=== PATIENT | female | born 1995 | race Caucasian/White ===

== ENCOUNTER 2018-07-18 11:31 | Emergency (ER) | payer OTHER, SELFPAY ==
[2018-07-18 12:51] VITALS: BP 144/90; PULSE 84; RESP 13; TEMP 37.3; O2SAT 100
--- NOTE | 2018-07-18 14:47 | ED.BACK ---
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 He has chronic ongoing back pain and has for awhile. She has done physical therapy acupuncture. She was told she has bulging discs. Today she presents with both abdominal and back pain but back pain seems to be the bigger problem. She did have some sciatic pain and discomfort down her right leg earlier this morning. It is slightly better. She has been on naproxen, ketorolac and methocarbamol she says nothing is helping. This morning she also is having some bad abdominal cramping she started her menses. Today she does have an IUD. His abdominal pain is better today now, now complaining more of back pain. She denies any injury. MD Complaint: back pain Onset (ago): month(s) Related Data Previous Rx's Medication Instructions Recorded diazepam [Valium] 5 mg PO BID PRN #10 tab 07/18/18 meloxicam 15 mg PO DAILY PRN #30 tab 07/18/18 Allergies Allergy/AdvReac Type Severity Reaction Status Date / Time No Known Drug Allergies Allergy Verified 07/18/18 15:06 Review of Systems Review of Systems GENERAL: Denies chills, fatigue, malaise, fever, sweats, travel HEENT: Denies sinus pain, ear pain, sore throat, difficulty swallowing, neck pain RESPIRATORY: Denies dyspnea, cough, wheezing, hemoptysis, sputum. CARDIOVASCULAR: Denies chest pain, palpitations, orthopnea, edema GASTROINTESTINAL: Denies nausea, vomiting, abdominal pain, diarrhea, constipation, melena. : Denies dysuria, frequency, incontinence, hematuria, urinary retention, flank pain. MUSCULOSKELETAL: See HPI SKIN: No rash, no erythema, no pruritus NEUROLOGIC: Denies weakness, dizziness, headache, numbness, change in speech, confusion PSYCHIATRIC: No concerning psychosocial issues. 12 point review of systems is negative except for those stated above and HPI PFSH Medical History Chronic back pain (Acute) Social History alcohol intake: never substance use type: does not use Social History alcohol intake: never substance use type: does not use Exam Initial Vital Signs Initial Vital Signs: Vital Signs Temperature 99.1 F 07/18/18 12:51 Pulse Rate 84 07/18/18 12:51 Respiratory Rate 13 07/18/18 12:51 Blood Pressure 144/90 H 07/18/18 12:51 Pulse Oximetry 100 07/18/18 12:51 GENERAL: Tearful in position on left side holding right flank. HEENT: Head atraumatic,EOMI, pupils reactive, CARDIOVASCULAR: Regular rate and rhythm without murmurs, rubs or gallops. RESPIRATORY: Breath sounds equal bilaterally, no wheezes rales or rhonchi. ABDOMEN: Soft, nontender. Normoactive bowel sounds all 4 quadrants. No guarding or rebound. BACK: No vertebral tenderness no step-offs, tender right peer form it is area : No CVA tenderness EXTREMITIES: Normal range of motion, no clubbing or edema. Neurovascularly intact NEUROLOGICAL: Alert and oriented x4.Normal gait and speech. SKIN: Warm, dry, no laceration, no petechiae, no rashes or lesions. Course Orders Ordered: Discontinued Medications Ketorolac Tromethamine (Toradol) 60 mg IM NOW ONE Stop: 07/18/18 14:47 Last Admin: 07/18/18 15:07 Dose: 60 mg Vital Signs - 8 hr 07/18/18 12:51 07/18/18 15:28 Temperature 99.1 F Pulse Rate 84 77 Respiratory Rate 13 14 Blood Pressure 144/90 H Blood Pressure [Left Arm] 104/62 Pulse Oximetry 100 99 MDM - Back Pain/Injury Lab Data Point of Care Testing Test Results Negative Urine Dip Bedside Urine Glucose Negative Bedside Urine Bilirubin - Negative Bedside Urine Ketone - Negative Urine Specific [place] 1.015 Bedside Urine Occult Blood - Negative Bedside Urine pH 7.0 Bedside Urine Protein - Negative Bedside Urine Urobilinogen - Negative Bedside Urine Nitrite - Negative Bedside Urine Leukocytes - Negative Esterase [facility] Narrative Medical decision making narrative: She is feeling slightly better after Toradol. Back pain seems to be her biggest complaint today. It also seems chronic and ongoing. We talked about his physical therapy yoga and possible outpatient MRI. Also change her outpatient medications to Mobic and Valium Discharge Plan Departure Patient Disposition: Home Clinical Impression: Acute exacerbation of chronic low back pain Discharge Date/Time: 07/18/18 15:34 Interventions: ED Discharge Assessment Last Done: 07/18/18 15:34 Instructions: DI for Back Pain With Sciatica Activity Restrictions/Additional Instructions: *You have been diagnosed with acute on chronic back pain *What to do: Recommend outpatient MRI as arranged by your PCP. Also recommend physical therapy, stretching, yoga *Continue to take medications as directed Stop taking methocarbamol, naproxen and ketorolac Meloxicam 15 mg once a day with food do not combine any other NSAIDS Valium 5 mg every 12 hr if needed for muscle spasm *Follow up with your primary care provider in 2-3 days *Return to ER if you should have loss of urine or fell, increasing leg weakness or any new, worsening or concerning symptoms Prescriptions: New meloxicam 15 mg tablet 15 mg PO DAILY PRN (Reason: pain (scale score 4-6)) Qty: 30 RF: 0 diazepam [Valium] 5 mg tablet 5 mg PO BID PRN (Reason: muscle spasm) Qty: 10 RF: 0 Referrals: [facility] [Provider Group]
--- NOTE | 2018-07-18 14:52 | ED_ITS ---
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 He has chronic ongoing back pain and has for awhile. She has done physical therapy acupuncture. She was told she has bulging discs. Today she presents with both abdominal and back pain but back pain seems to be the bigger problem. She did have some sciatic pain and discomfort down her right leg earlier this morning. It is slightly better. She has been on naproxen, ketorolac and methocarbamol she says nothing is helping. This morning she also is having some bad abdominal cramping she started her menses. Today she does have an IUD. His abdominal pain is better today now, now complaining more of back pain. She denies any injury. MD Complaint: back pain Onset (ago): month(s) Related Data Previous Rx's Medication Instructions Recorded diazepam [Valium] 5 mg PO BID PRN #10 tab 07/18/18 meloxicam 15 mg PO DAILY PRN #30 tab 07/18/18 Allergies Allergy/AdvReac Type Severity Reaction Status Date / Time No Known Drug Allergies Allergy Verified 07/18/18 15:06 Review of Systems Review of Systems GENERAL: Denies chills, fatigue, malaise, fever, sweats, travel HEENT: Denies sinus pain, ear pain, sore throat, difficulty swallowing, neck pain RESPIRATORY: Denies dyspnea, cough, wheezing, hemoptysis, sputum. CARDIOVASCULAR: Denies chest pain, palpitations, orthopnea, edema GASTROINTESTINAL: Denies nausea, vomiting, abdominal pain, diarrhea, constipation, melena. : Denies dysuria, frequency, incontinence, hematuria, urinary retention, flank pain. MUSCULOSKELETAL: See HPI SKIN: No rash, no erythema, no pruritus NEUROLOGIC: Denies weakness, dizziness, headache, numbness, change in speech, confusion PSYCHIATRIC: No concerning psychosocial issues. 12 point review of systems is negative except for those stated above and HPI PFSH Medical History Chronic back pain (Acute) Social History alcohol intake: never substance use type: does not use Social History alcohol intake: never substance use type: does not use Exam Initial Vital Signs Initial Vital Signs: Vital Signs Temperature 99.1 F 07/18/18 12:51 Pulse Rate 84 07/18/18 12:51 Respiratory Rate 13 07/18/18 12:51 Blood Pressure 144/90 H 07/18/18 12:51 Pulse Oximetry 100 07/18/18 12:51 GENERAL: Tearful in position on left side holding right flank. HEENT: Head atraumatic,EOMI, pupils reactive, CARDIOVASCULAR: Regular rate and rhythm without murmurs, rubs or gallops. RESPIRATORY: Breath sounds equal bilaterally, no wheezes rales or rhonchi. ABDOMEN: Soft, nontender. Normoactive bowel sounds all 4 quadrants. No guarding or rebound. BACK: No vertebral tenderness no step-offs, tender right peer form it is area : No CVA tenderness EXTREMITIES: Normal range of motion, no clubbing or edema. Neurovascularly intact NEUROLOGICAL: Alert and oriented x4.Normal gait and speech. SKIN: Warm, dry, no laceration, no petechiae, no rashes or lesions. Course Orders Ordered: Discontinued Medications Ketorolac Tromethamine (Toradol) 60 mg IM NOW ONE Stop: 07/18/18 14:47 Last Admin: 07/18/18 15:07 Dose: 60 mg Vital Signs - 8 hr 07/18/18 12:51 07/18/18 15:28 Temperature 99.1 F Pulse Rate 84 77 Respiratory Rate 13 14 Blood Pressure 144/90 H Blood Pressure [Left Arm] 104/62 Pulse Oximetry 100 99 MDM - Back Pain/Injury Lab Data Point of Care Testing Test Results Negative Urine Dip Bedside Urine Glucose Negative Bedside Urine Bilirubin - Negative Bedside Urine Ketone - Negative Urine Specific [place] 1.015 Bedside Urine Occult Blood - Negative Bedside Urine pH 7.0 Bedside Urine Protein - Negative Bedside Urine Urobilinogen - Negative Bedside Urine Nitrite - Negative Bedside Urine Leukocytes - Negative Esterase [facility] Narrative Medical decision making narrative: She is feeling slightly better after Toradol. Back pain seems to be her biggest complaint today. It also seems chronic and ongoing. We talked about his physical therapy yoga and possible outpatient MRI. Also change her outpatient medications to Mobic and Valium Discharge Plan Departure Patient Disposition: Home Clinical Impression: Acute exacerbation of chronic low back pain Discharge Date/Time: 07/18/18 15:34 Interventions: ED Discharge Assessment Last Done: 07/18/18 15:34 Instructions: DI for Back Pain With Sciatica Activity Restrictions/Additional Instructions: *You have been diagnosed with acute on chronic back pain *What to do: Recommend outpatient MRI as arranged by your PCP. Also recommend physical therapy, stretching, yoga *Continue to take medications as directed Stop taking methocarbamol, naproxen and ketorolac Meloxicam 15 mg once a day with food do not combine any other NSAIDS Valium 5 mg every 12 hr if needed for muscle spasm *Follow up with your primary care provider in 2-3 days *Return to ER if you should have loss of urine or fell, increasing leg weakness or any new, worsening or concerning symptoms Prescriptions: New meloxicam 15 mg tablet 15 mg PO DAILY PRN (Reason: pain (scale score 4-6)) Qty: 30 RF: 0 diazepam [Valium] 5 mg tablet 5 mg PO BID PRN (Reason: muscle spasm) Qty: 10 RF: 0 Referrals: [facility] [Provider Group]
[2018-07-18] MEDS: KETOROLAC 60 MG/2 ML VIAL IM (15:07)
[2018-07-18 15:28] VITALS: BP 104/62; PULSE 77; RESP 14; O2SAT 99
== END 2018-07-18 15:34 | disposition home or self-care (01) ==
PROVIDERS: Emergency Provider Emergency Medicine
DX: G89.29 Other chronic pain (principal); M54.5 Low back pain
CPT/HCPCS: 81003; 81025; 99282; 99283; J1885

== ENCOUNTER → 2018-08-05 18:35 | Outpatient (CLI) | payer OTHER, SELFPAY ==
--- NOTE | 2018-08-05 18:38 | DI.MRI.S_ITS ---
PROCEDURE: MR LUMBAR SPINE WO CON INDICATIONS: ACUTE EXACERBATION OF CHRONIC LOW BACK PAIN TECHNIQUE: Noncontrast sagittal T1 spin echo and T2 fast echo, sagittal STIR, axial T1 and T2 fast spin echo through the lumbar spine. In cases with scoliosis, additional coronal T2 fast spin echo may be performed. COMPARISON: None. FINDINGS: Image quality: Excellent. Alignment and Curvature: There is normal bony alignment. Bone Marrow: Marrow is of normal overall signal. No acute vertebral body compression fractures. Spinal Cord: Conus medullaris terminates at the L1 to level. Visualized cord demonstrates normal signal and size. Paraspinous Soft Tissues: No paravertebral masses. L1-L2: Normal appearance. L2-L3: Normal appearance. L3-L4: Mild broad-based disc bulge and bilateral facet arthrosis is seen with no significant canal stenosis or neuroforaminal narrowing. L4-L5: There is broad-based disc bulge and bilateral facet arthrosis with mild central canal stenosis, no significant neuroforaminal narrowing. L5-S1: Diffuse disc bulge and bilateral facet arthrosis is seen with no significant canal stenosis or neuroforaminal narrowing IMPRESSION: 1. Mild degenerative disc bulge and bilateral facet arthrosis at L3-4 through L5-S1 levels causing mild central canal stenosis at L4-5 level. No significant neuroforaminal narrowing. 2. No marrow edema. No compression fracture or spondylolisthesis. Dictated by: Henrry Anderson M.D. on 08/05/2018 at 20:46 Approved by: Henrry Anderson M.D. on 08/05/2018 at 20:49
== END ==
PROVIDERS: Visit Provider Nurse Practitioner Family
DX: M54.5 Low back pain (principal); M51.36 Other intervertebral disc degeneration, lumbar region; M51.37 Other intervertebral disc degeneration, lumbosacral region; M48.061 Spinal stenosis, lumbar region without neurogenic claudication; M47.816 Spondylosis without myelopathy or radiculopathy, lumbar region; M47.817 Spondylosis without myelopathy or radiculopathy, lumbosacral region; G89.29 Other chronic pain
CPT/HCPCS: 72148

== ENCOUNTER 2018-08-24 10:54 | Emergency (ER) | payer OTHER, SELFPAY ==
[2018-08-24 11:00] VITALS: BP 126/85; PULSE 110; RESP 14; TEMP 37.1; O2SAT 100
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
[2018-08-24 12:13] VITALS: BP 112/74; PULSE 76; RESP 16; O2SAT 100
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
--- NOTE | 2018-08-24 12:41 | DI.RAD.S_ITS ---
PROCEDURE: XR LUMBAR SPINE 2-3V INDICATIONS: chronic back pain, worse in SI/right lateral TECHNIQUE: 3 views of the lumbar spine were acquired. COMPARISON: None. FINDINGS: Bones: 5 eha-lmi-olmqgek vertebrae are present. There is normal bony alignment. No vertebral body compression fractures. No suspicious bony lesions. Soft tissues: Overlying bowel gas pattern is normal. No suspicious soft tissue calcifications. IMPRESSION: No fracture. No acute osseous lesion. If symptoms and/or clinical suspicion for pathology persists, evaluation with MRI may be helpful for further assessment. Dictated by: Giovanna Talamantes MD, PhD on 08/24/2018 at 13:04 Approved by: Giovanna Talamantes MD, PhD on 08/24/2018 at 13:05
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
[2018-08-24] MEDS: IBUPROFEN 400 MG TABLET 800 MG PO (12:55)
[2018-08-24 13:30] VITALS: BP 166/77; PULSE 62; RESP 16; O2SAT 100
== END 2018-08-24 13:39 | disposition home or self-care (01) ==
PROVIDERS: Emergency Provider Internal Medicine
DX: S70.00XA Contusion of unspecified hip, initial encounter (principal); M51.26 Other intervertebral disc displacement, lumbar region; V03.00XA Pedestrian on foot injured in collision with car, pick-up truck or van in nontraffic accident, initial encounter
CPT/HCPCS: 72100; 73502; 99283; 99291

== ENCOUNTER 2018-09-16 09:13 | Emergency (ER) | payer OTHER, SELFPAY ==
[2018-09-16 09:15] VITALS: BP 105/62; PULSE 62; RESP 18; TEMP 36.9; O2SAT 100
--- NOTE | 2018-09-16 09:26 | ED.BACK ---
HPI - Back Pain/Injury General Chief Complaint: Back Pain/Injury Stated Complaint: 'MIGHT OF FRACTURED TAILBONE' Time Seen by Provider: 09/16/18 09:15 Source: patient Mode of arrival: ambulatory Limitations: no limitations History of Present Illness HPI Narrative: 23-year-old nonsmoking female, with history of back problems presents with a chief complaint of tailbone pain since yesterday. She was bouncing on a piece of driftwood when she slipped and fell directly onto her tailbone and now has significant pain with sitting or certain motions. She denies pain in her back and has no radiation of the pain. She denies any neurologic findings such as numbness, tingling or weakness. She has no trouble controlling bowel or bladder. She has no foot drop. She denies other injury MD Complaint: other Onset (ago): hour(s) Duration: constant Similar Symptoms Previously: No Location: sacrum Severity: moderate Quality: burning and sharp Radiation: none Exacerbating factors: sitting upright Context: fall Associated symptoms: denies other symptoms Related Data Home Medications Medication Instructions Recorded Confirmed levonorgestrel 20 mcg/24 hours (5 1 ea INTRAUTERINE DIRECTED each 07/21/18 09/16/18 yrs) 52 mg intrauterine device Previous Rx's Medication Instructions Recorded hydrocodone-acetaminophen 1 tab PO Q4-6H PRN #10 tab 09/16/18 ketorolac 10 mg PO Q6H PRN #14 tab 09/16/18 Allergies Allergy/AdvReac Type Severity Reaction Status Date / Time No Known Drug Allergies Allergy Verified 09/16/18 09:22 Review of Systems Constitutional Denies chills, Denies fever(s), Denies lethargy and Denies weakness Eyes Denies change in vision, Denies eye discharge, Denies irritation and Denies loss of vision ENT Ears, Nose, Mouth, and Throat: Denies change in voice, Denies neck pain and Denies sore throat Cardiovascular Denies chest pain, Denies irregular heart rhythm, Denies lightheadedness, Denies palpitations, Denies dyspnea, Denies dyspnea on exertion and Denies orthopnea Respiratory Denies cough, Denies dyspnea, Denies dyspnea on exertion and Denies wheezing Gastrointestinal Gastrointestinal: Denies abdominal pain, Denies change in bowel habits, Denies diarrhea, Denies nausea and Denies vomiting Genitourinary Denies hematuria, Denies flank pain, Denies urinary incontinence and Denies urinary urgency Musculoskeletal Reports back pain and Denies neck pain Integumentary/Breasts Denies pruritus, Denies erythema, Denies rash and Denies wounds Neurologic Denies confusion, Denies loss of vision and Denies weakness Psychiatric Denies anxiety, Denies confusion, Denies depression, Denies homicidal ideation and Denies suicidal ideation Endocrine Denies palpitations Hematologic/Lymphatic Denies easy bruising Allergic/Immunologic Denies wheezing PFSH Medical History Anxiety (Chronic) Chronic back pain (Chronic) Foot pain (Chronic) Headache (Chronic) Lumbar herniated disc (Chronic) Plantar warts (Chronic) Shoulder pain (Chronic) Social History Smoking Status: Never smoker second hand exposure: No alcohol intake: never substance use type: does not use Social History Smoking Status: Never smoker second hand exposure: No alcohol intake: never substance use type: does not use Exam Narrative Exam Narrative: GENERAL: 23-year-old female obviously uncomfortable, rubbing her coccyx HEAD: Atraumatic. Normocephalic. No temporal or scalp tenderness. EYES: Pupils equal round and reactive. Extraocular motions intact. No scleral icterus. No injection or drainage. ENT: Nose without bleeding, purulent drainage or septal hematoma. Throat without erythema, tonsillar hypertrophy or exudate. Uvula midline. Airway patent. NECK: Trachea midline. No JVD or lymphadenopathy. Supple, nontender, no meningeal signs. CARDIOVASCULAR: Regular rate and rhythm without murmurs, gallops, or rubs. RESPIRATORY: Clear to auscultation. Breath sounds equal bilaterally. No wheezes, rales, or rhonchi. GASTROINTESTINAL: Abdomen soft, non-tender, nondistended. No hepato-splenomegaly, or palpable masses. No guarding. EXTREMITIES: No clubbing, cyanosis, or edema. No joint tenderness, effusion, or edema noted. BACK: Nontender without deformity or crepitance. No flank tenderness. NEURO: AOx3. SKIN: No rash or erythema. Initial Vital Signs Initial Vital Signs: Vital Signs Temperature 98.4 F 09/16/18 09:15 Pulse Rate 62 09/16/18 09:15 Respiratory Rate 18 09/16/18 09:15 Blood Pressure 105/62 09/16/18 09:15 Pulse Oximetry 100 09/16/18 09:15 Course Orders Ordered: ED Orders 09/16/18 09:31 XR sacrum coccyx min 2V Stat Vital Signs - 8 hr 09/16/18 09:15 Temperature 98.4 F Pulse Rate 62 Respiratory Rate 18 Blood Pressure 105/62 Pulse Oximetry 100 MDM - Back Pain/Injury Lab Data Point of Care Testing Test Results Negative Urine Dip Bedside Urine Glucose Negative Bedside Urine Bilirubin - Negative Bedside Urine Ketone - Negative Urine Specific [place] 1.020 Bedside Urine Occult Blood - Negative Bedside Urine pH 7.5 Bedside Urine Protein - Negative Bedside Urine Urobilinogen - Negative Bedside Urine Nitrite - Negative Bedside Urine Leukocytes - Negative Esterase Imaging Data Sacrum: Radiologist's impression: [address] [address] XRay Report Signed Patient: Herlinda Maher RMR#: [id number] : 1995Acct:[id number] Age/Sex: 23 / FDate of Service: 09/16/18 Loc: ED Accession Number: [id number] Procedure: XR sacrum coccyx min 2V Ordering Provider: Benji Kingsley D.O. PROCEDURE: XR SACRUM COCCYX MIN 2V INDICATIONS: fall with sacral / coccyx pain TECHNIQUE: 3 views of the sacrum and coccyx acquired. COMPARISON: None. FINDINGS: Bones: No fractures or dislocations. No suspicious bony lesions. Soft tissues: Visualized bowel gas pattern is normal. No suspicious soft tissue densities. An intrauterine device is present. IMPRESSION: No acute fracture. No osseous lesion. If symptoms and/or clinical suspicion for pathology persist, further assessment with repeat, or advanced imaging (e.g., CT, MRI, or bone scan) may be helpful for further assessment. Dictated by: Brennan Reed M.D. on 09/16/2018 at 10:07 Approved by: Brennan Reed M.D. on 09/16/2018 at 10:08 Discharge Plan Departure Patient Disposition: Home Clinical Impression: Coccyx pain Activity Restrictions/Additional Instructions: *You have been diagnosed with [coccyx pain, possible fracture] *What to do: *Take medications as directed *Follow up with your primary care provider in 2-3 days, call for an appointment. Let them know you were seen in the Emergency Department and that we ask that you be seen in follow up *Return to ER if you should have any new, worsening or concerning symptoms Prescriptions: New hydrocodone-acetaminophen 5-325 mg tablet 1 tab PO Q4-6H PRN (Reason: pain) Qty: 10 RF: 0 ketorolac 10 mg tablet 10 mg PO Q6H PRN (Reason: pain) Qty: 14 RF: 0 No Action Mirena 20 mcg/24 hr (5 years) intrauterine device 1 ea Intrauterine DIRECTED RF: 0
--- NOTE | 2018-09-16 09:31 | DI.RAD.S_ITS ---
PROCEDURE: XR SACRUM COCCYX MIN 2V INDICATIONS: fall with sacral / coccyx pain TECHNIQUE: 3 views of the sacrum and coccyx acquired. COMPARISON: None. FINDINGS: Bones: No fractures or dislocations. No suspicious bony lesions. Soft tissues: Visualized bowel gas pattern is normal. No suspicious soft tissue densities. An intrauterine device is present. IMPRESSION: No acute fracture. No osseous lesion. If symptoms and/or clinical suspicion for pathology persist, further assessment with repeat, or advanced imaging (e.g., CT, MRI, or bone scan) may be helpful for further assessment. Dictated by: Brennan Reed M.D. on 09/16/2018 at 10:07 Approved by: Brennan Reed M.D. on 09/16/2018 at 10:08
--- NOTE | 2018-09-16 09:53 | ED_ITS ---
HPI - Back Pain/Injury General Chief Complaint: Back Pain/Injury Stated Complaint: 'MIGHT OF FRACTURED TAILBONE' Time Seen by Provider: 09/16/18 09:15 Source: patient Mode of arrival: ambulatory Limitations: no limitations History of Present Illness HPI Narrative: 23-year-old nonsmoking female, with history of back problems presents with a chief complaint of tailbone pain since yesterday. She was bouncing on a piece of driftwood when she slipped and fell directly onto her tailbone and now has significant pain with sitting or certain motions. She denies pain in her back and has no radiation of the pain. She denies any neurologic findings such as numbness, tingling or weakness. She has no trouble controlling bowel or bladder. She has no foot drop. She denies other injury MD Complaint: other Onset (ago): hour(s) Duration: constant Similar Symptoms Previously: No Location: sacrum Severity: moderate Quality: burning and sharp Radiation: none Exacerbating factors: sitting upright Context: fall Associated symptoms: denies other symptoms Related Data Home Medications Medication Instructions Recorded Confirmed levonorgestrel 20 mcg/24 hours (5 1 ea INTRAUTERINE DIRECTED each 07/21/18 09/16/18 yrs) 52 mg intrauterine device Previous Rx's Medication Instructions Recorded hydrocodone-acetaminophen 1 tab PO Q4-6H PRN #10 tab 09/16/18 ketorolac 10 mg PO Q6H PRN #14 tab 09/16/18 Allergies Allergy/AdvReac Type Severity Reaction Status Date / Time No Known Drug Allergies Allergy Verified 09/16/18 09:22 Review of Systems Constitutional Denies chills, Denies fever(s), Denies lethargy and Denies weakness Eyes Denies change in vision, Denies eye discharge, Denies irritation and Denies loss of vision ENT Ears, Nose, Mouth, and Throat: Denies change in voice, Denies neck pain and Denies sore throat Cardiovascular Denies chest pain, Denies irregular heart rhythm, Denies lightheadedness, Denies palpitations, Denies dyspnea, Denies dyspnea on exertion and Denies orthopnea Respiratory Denies cough, Denies dyspnea, Denies dyspnea on exertion and Denies wheezing Gastrointestinal Gastrointestinal: Denies abdominal pain, Denies change in bowel habits, Denies diarrhea, Denies nausea and Denies vomiting Genitourinary Denies hematuria, Denies flank pain, Denies urinary incontinence and Denies urinary urgency Musculoskeletal Reports back pain and Denies neck pain Integumentary/Breasts Denies pruritus, Denies erythema, Denies rash and Denies wounds Neurologic Denies confusion, Denies loss of vision and Denies weakness Psychiatric Denies anxiety, Denies confusion, Denies depression, Denies homicidal ideation and Denies suicidal ideation Endocrine Denies palpitations Hematologic/Lymphatic Denies easy bruising Allergic/Immunologic Denies wheezing PFSH Medical History Anxiety (Chronic) Chronic back pain (Chronic) Foot pain (Chronic) Headache (Chronic) Lumbar herniated disc (Chronic) Plantar warts (Chronic) Shoulder pain (Chronic) Social History Smoking Status: Never smoker second hand exposure: No alcohol intake: never substance use type: does not use Social History Smoking Status: Never smoker second hand exposure: No alcohol intake: never substance use type: does not use Exam Narrative Exam Narrative: GENERAL: 23-year-old female obviously uncomfortable, rubbing her coccyx HEAD: Atraumatic. Normocephalic. No temporal or scalp tenderness. EYES: Pupils equal round and reactive. Extraocular motions intact. No scleral icterus. No injection or drainage. ENT: Nose without bleeding, purulent drainage or septal hematoma. Throat without erythema, tonsillar hypertrophy or exudate. Uvula midline. Airway patent. NECK: Trachea midline. No JVD or lymphadenopathy. Supple, nontender, no meningeal signs. CARDIOVASCULAR: Regular rate and rhythm without murmurs, gallops, or rubs. RESPIRATORY: Clear to auscultation. Breath sounds equal bilaterally. No wheezes, rales, or rhonchi. GASTROINTESTINAL: Abdomen soft, non-tender, nondistended. No hepato- splenomegaly, or palpable masses. No guarding. EXTREMITIES: No clubbing, cyanosis, or edema. No joint tenderness, effusion, or edema noted. BACK: Nontender without deformity or crepitance. No flank tenderness. NEURO: AOx3. SKIN: No rash or erythema. Initial Vital Signs Initial Vital Signs: Vital Signs Temperature 98.4 F 09/16/18 09:15 Pulse Rate 62 09/16/18 09:15 Respiratory Rate 18 09/16/18 09:15 Blood Pressure 105/62 09/16/18 09:15 Pulse Oximetry 100 09/16/18 09:15 Course Orders Ordered: ED Orders 09/16/18 09:31 XR sacrum coccyx min 2V Stat Vital Signs - 8 hr 09/16/18 09:15 Temperature 98.4 F Pulse Rate 62 Respiratory Rate 18 Blood Pressure 105/62 Pulse Oximetry 100 MDM - Back Pain/Injury Lab Data Point of Care Testing Test Results Negative Urine Dip Bedside Urine Glucose Negative Bedside Urine Bilirubin - Negative Bedside Urine Ketone - Negative Urine Specific [place] 1.020 Bedside Urine Occult Blood - Negative Bedside Urine pH 7.5 Bedside Urine Protein - Negative Bedside Urine Urobilinogen - Negative Bedside Urine Nitrite - Negative Bedside Urine Leukocytes - Negative Esterase Imaging Data Sacrum: Radiologist's impression: [address] [address] XRay Report Signed Patient: Herlinda Maher RMR#: [id number] : 1995Acct:[id number] Age/Sex: 23 / FDate of Service: 09/16/18 Loc: ED Accession Number: [id number] Procedure: XR sacrum coccyx min 2V Ordering Provider: Benji Kingsley D.O. PROCEDURE: XR SACRUM COCCYX MIN 2V INDICATIONS: fall with sacral / coccyx pain TECHNIQUE: 3 views of the sacrum and coccyx acquired. COMPARISON: None. FINDINGS: Bones: No fractures or dislocations. No suspicious bony lesions. Soft tissues: Visualized bowel gas pattern is normal. No suspicious soft tissue densities. An intrauterine device is present. IMPRESSION: No acute fracture. No osseous lesion. If symptoms and/or clinical suspicion for pathology persist, further assessment with repeat, or advanced imaging (e.g., CT, MRI, or bone scan) may be helpful for further assessment. Dictated by: Brennan Reed M.D. on 09/16/2018 at 10:07 Approved by: Brennan Reed M.D. on 09/16/2018 at 10:08 Discharge Plan Departure Patient Disposition: Home Clinical Impression: Coccyx pain Activity Restrictions/Additional Instructions: *You have been diagnosed with [coccyx pain, possible fracture] *What to do: *Take medications as directed *Follow up with your primary care provider in 2-3 days, call for an appointment. Let them know you were seen in the Emergency Department and that we ask that you be seen in follow up *Return to ER if you should have any new, worsening or concerning symptoms Prescriptions: New hydrocodone-acetaminophen 5-325 mg tablet 1 tab PO Q4-6H PRN (Reason: pain) Qty: 10 RF: 0 ketorolac 10 mg tablet 10 mg PO Q6H PRN (Reason: pain) Qty: 14 RF: 0 No Action Mirena 20 mcg/24 hr (5 years) intrauterine device 1 ea Intrauterine DIRECTED RF: 0
[2018-09-16 10:24] VITALS: BP 109/78; PULSE 64; RESP 12; O2SAT 100
== END 2018-09-16 10:30 | disposition home or self-care (01) ==
PROVIDERS: Emergency Provider Emergency Medicine
DX: M53.3 Sacrococcygeal disorders, not elsewhere classified (principal); W19.XXXA Unspecified fall, initial encounter
CPT/HCPCS: 72220; 81003; 81025; 99283

== ENCOUNTER 2018-10-30 10:13 | Emergency (ER) | payer OTHER, SELFPAY ==
[2018-10-30 10:26] VITALS: BP 116/77; PULSE 88; RESP 22; TEMP 36.4; O2SAT 99
[2018-10-30] MEDS: KETOROLAC 60 MG/2 ML VIAL IM (10:50)
--- NOTE | 2018-10-30 11:37 | ED.BACK ---
HPI - Back Pain/Injury <DANYELL Love - Last Filed: 10/30/18 13:18> General Chief Complaint: Back Pain/Injury Stated Complaint: Muscle pain in whole back Time Seen by Provider: 10/30/18 10:42 Source: patient and family Mode of arrival: ambulatory Limitations: no limitations History of Present Illness HPI Narrative: The patient is a 23-year-old female nonsmoker presents with a chief complaint of back pain. She states she has a history of back pain, has had injections in her spine and has a plan to see a pain specialist regarding SI joint pain in [place] on Wednesday. She states she woke up with severe back spasms. She took naproxen 500 mg, methocarbamol 500 mg at approximately 8:00 a.m.. She states the pain decreased after Toradol given in the emergency department, but is still a 11/16. States the spasms, ago, worsened by motion. She denies any recent fall or injury. She denies any incontinence of bowel, incontinence of bladder numbness or tingling. She denies any possibility of as she has Mirena. Related Data Home Medications Medication Instructions Recorded Confirmed levonorgestrel 20 mcg/24 hours (5 1 ea INTRAUTERINE DIRECTED each 07/21/18 09/16/18 yrs) 52 mg intrauterine device Previous Rx's Medication Instructions Recorded hydrocodone-acetaminophen 1 tab PO Q4-6H PRN #10 tab 09/16/18 ketorolac 10 mg PO Q6H PRN #14 tab 09/16/18 cyclobenzaprine 5 mg PO TID PRN #30 tab 10/30/18 hydrocodone-acetaminophen [[place]] 1 tab PO Q4-6H PRN #7 tab 10/30/18 Allergies Allergy/AdvReac Type Severity Reaction Status Date / Time No Known Drug Allergies Allergy Verified 09/16/18 09:22 Review of Systems <DANYELL Love - Last Filed: 10/30/18 13:18> Review of Systems GENERAL: Denies chills, fatigue, malaise, fever, sweats. HEENT: Denies sinus pain, ear pain, sore throat, difficulty swallowing, dizziness. RESPIRATORY: Denies dyspnea, cough, wheezing, hemoptysis, sputum. CARDIOVASCULAR: Denies chest pain, palpitations, orthopnea, edema, GASTROINTESTINAL: Denies nausea, vomiting, abdominal pain, diarrhea, constipation, melena. : Denies dysuria, frequency, incontinence, hematuria, urinary retention. MUSCULOSKELETAL: See HPI SKIN: See HPI NEUROLOGIC: Denies weakness, headache, numbness, change in speech, confusion, seizures, incoordination. PSYCHIATRIC: No concerning psychosocial issues. 12 point review of systems is negative except for those stated above PFSH <DANYELL Love - Last Filed: 10/30/18 13:18> Medical History Anxiety (Chronic) Chronic back pain (Chronic) Foot pain (Chronic) Headache (Chronic) Lumbar herniated disc (Chronic) Plantar warts (Chronic) Shoulder pain (Chronic) Social History Smoking Status: Never smoker second hand exposure: No alcohol intake: never substance use type: does not use Social History Smoking Status: Never smoker second hand exposure: No alcohol intake: never substance use type: does not use Exam <DANYELL Love - Last Filed: 10/30/18 13:18> Narrative Exam Narrative: GENERAL: This is a well-nourished, well-developed patient, in no acute distress HEAD: Atraumatic. Normocephalic. No temporal or scalp tenderness. EYES: Pupils equal round and reactive. Extraocular motions intact. No scleral icterus. No injection or drainage. ENT: Nose without bleeding, purulent drainage or septal hematoma. Throat without erythema, tonsillar hypertrophy or exudate. Uvula midline. Airway patent. NECK: Trachea midline. No JVD or lymphadenopathy. Supple, nontender, no meningeal signs. CARDIOVASCULAR: Regular rate and rhythm RESPIRATORY: Clear to auscultation. Breath sounds equal bilaterally. No wheezes, rales, or rhonchi. No cough. No increased respiratory effort. No accessory muscle use. EXTREMITIES: No clubbing, cyanosis, or edema. No joint tenderness, effusion, or edema noted. BACK: C-spine, T-spine and L-spine are nontender without deformity or crepitance. No flank tenderness. Pain to bilateral paraspinal muscle palpation L-spine. NEURO: AOx3. Stable gait. Cranial nerves grossly intact. Strength is equal upper and lower extremities bilaterally. SKIN: No rash or erythema. Initial Vital Signs Initial Vital Signs: Vital Signs Temperature 97.5 F L 10/30/18 10:26 Pulse Rate 88 10/30/18 10:26 Respiratory Rate 22 10/30/18 10:26 Blood Pressure 116/77 10/30/18 10:26 Pulse Oximetry 99 10/30/18 10:26 <Joselyn Bergeron MD - Last Filed: 10/30/18 13:20> Initial Vital Signs Initial Vital Signs: Vital Signs Temperature 97.5 F L 10/30/18 10:26 Pulse Rate 88 10/30/18 10:26 Respiratory Rate 22 10/30/18 10:26 Blood Pressure 116/77 10/30/18 10:26 Pulse Oximetry 99 10/30/18 10:26 Course <RINKU Love-NENO - Last Filed: 10/30/18 13:18> Orders Ordered: Discontinued Medications Hydrocodone Bitart/Acetaminophen ([place] 5/325) 1 tab PO NOW ONE Stop: 10/30/18 11:30 Last Admin: 10/30/18 11:38 Dose: 1 tab Cyclobenzaprine HCl (Flexeril) 5 mg PO NOW ONE Stop: 10/30/18 11:30 Last Admin: 10/30/18 11:38 Dose: 5 mg Ketorolac Tromethamine (Toradol) 60 mg IM NOW ONE Stop: 10/30/18 10:47 Last Admin: 10/30/18 10:50 Dose: 60 mg Vital Signs - 8 hr 10/30/18 10:26 10/30/18 12:16 Temperature 97.5 F L Pulse Rate 88 75 Respiratory Rate 22 16 Blood Pressure 116/77 118/80 Pulse Oximetry 99 96 <Joselyn Bergeron MD - Last Filed: 10/30/18 13:20> Orders Ordered: Discontinued Medications Hydrocodone Bitart/Acetaminophen ([place] 5/325) 1 tab PO NOW ONE Stop: 10/30/18 11:30 Last Admin: 10/30/18 11:38 Dose: 1 tab Cyclobenzaprine HCl (Flexeril) 5 mg PO NOW ONE Stop: 10/30/18 11:30 Last Admin: 10/30/18 11:38 Dose: 5 mg Ketorolac Tromethamine (Toradol) 60 mg IM NOW ONE Stop: 10/30/18 10:47 Last Admin: 10/30/18 10:50 Dose: 60 mg Vital Signs - 8 hr 10/30/18 10:26 10/30/18 12:16 Temperature 97.5 F L Pulse Rate 88 75 Respiratory Rate 22 16 Blood Pressure 116/77 118/80 Pulse Oximetry 99 96 [facility] - Back Pain/Injury <JOSEE Love - Last Filed: 10/30/18 13:18> MDM Narrative Medical decision making narrative: The patient is a 23-year-old female who presents with chief complaint of back spasms. She states she has had x-rays here, has an MRI scheduled on Wednesday. She was given medications as documented, and had good relief for pain. I discussed at length coming back to the ER for any red flag symptoms such as incontinence of bowel, incontinence of bladder etc. Patient does not have any red flag symptoms at this point time. She also denies trauma. Patient has no questions or concerns upon discharge. I discussed at length monitoring for any changes including neurological changes. Discussed at length not combining methocarbamol with cyclobenzaprine. No questions or concerns upon discharge. Discussed that [place] can be constipating and sedating, not to drive on it. Discharge Plan Departure Patient Disposition: Home Clinical Impression: Back muscle spasm Back pain Qualifiers: Back pain location: low back pain Chronicity: unspecified Back pain laterality: bilateral Sciatica presence: without sciatica Qualified Code(s): M54.5 - Low back pain Discharge Date/Time: 10/30/18 12:29 Interventions: ED Discharge Assessment Last Done: 10/30/18 12:16 Instructions: DI for Low Back Pain, DI for Back Spasm, DI for Back Strain or Sprain Activity Restrictions/Additional Instructions: Please follow up with your primary care provider and the specialist as scheduled on Wednesday. Please do not combine the cyclobenzaprine with methocarbamol, as these are similar medications. Be aware that [place] can be constipating and sedating. Please come back to the emergency department for any acute concerns such as incontinence of bowel, incontinence of bladder or numbness where you would sound hoarse Prescriptions: New hydrocodone-acetaminophen [[place]] 5-325 mg tablet 1 tab PO Q4-6H PRN (Reason: pain) Qty: 7 RF: 0 cyclobenzaprine 5 mg tablet 5 mg PO TID PRN (Reason: muscle spasm) Qty: 30 RF: 0 No Action Mirena 20 mcg/24 hr (5 years) intrauterine device 1 ea Intrauterine DIRECTED RF: 0 hydrocodone-acetaminophen 5-325 mg tablet 1 tab PO Q4-6H PRN (Reason: pain) Qty: 10 RF: 0 ketorolac 10 mg tablet 10 mg PO Q6H PRN (Reason: pain) Qty: 14 RF: 0
[2018-10-30] MEDS: CYCLOBENZAPRINE 5 MG TABLET PO (11:38)
[2018-10-30] MEDS: HYDROCODONE/ACET 5/325 TABLET 1 TAB PO (11:38)
[2018-10-30 12:16] VITALS: BP 118/80; PULSE 75; RESP 16; O2SAT 96
== END 2018-10-30 12:29 | disposition home or self-care (01) ==
PROVIDERS: Emergency Provider Nurse Practitioner Family
DX: M62.830 Muscle spasm of back (principal); M54.5 Low back pain
CPT/HCPCS: 96372; 99282; 99283; J1885

== ENCOUNTER → 2020-01-03 14:39 | Outpatient (CLI) | payer OTHER, SELFPAY ==
--- NOTE | 2020-01-03 14:40 | DI.RAD.S_ITS ---
PROCEDURE: XR KNEE LT 3V INDICATIONS: left knee pain TECHNIQUE: 3 views of the knee were acquired. COMPARISON: None. FINDINGS: Bones: No fractures or dislocations. No suspicious bony lesions. Soft tissues: No joint effusion. No suspicious soft tissue calcifications. IMPRESSION: Normal for age, source of current left-sided knee pain symptoms is not seen. Dictated by: James Steven M.D. on 01/03/2020 at 15:08 Approved by: James Steven M.D. on 01/03/2020 at 15:09
== END ==
PROVIDERS: PCP Nurse Practitioner Family; Referring Provider Nurse Practitioner Family; Visit Provider Nurse Practitioner Family
DX: M25.562 Pain in left knee (principal)
CPT/HCPCS: 73562

== ENCOUNTER → 2020-01-04 07:42 | Outpatient (CLI) | payer OTHER, SELFPAY ==
[2020-01-04 08:43] LABS: Add Manual Diff / Slide Review NO; Basophils Absolute Auto 0 /uL (0-100); Basophils Percent Auto 0.5 % (0-2); Eosinophils Absolute Auto 100 /uL (0-450); Hematocrit 40.9 % (36-46); Hemoglobin 13.8 g/dL (12.0-16.0); Lymphocytes Absolute Auto 2100 /uL (1100-4500); Lymphocytes Percent Auto 33.1 % (25-40); Mean Corpuscular HGB Conc 33.7 % (30-36); Mean Corpuscular Volume 92.1 fL (80-100); Monocytes Absolute Auto 500 /uL (0-900); Monocytes Percent Auto 7.5 % (3-14); Neutrophils Absolute Auto 3600 /uL (1500-7000); Neutrophils Percent Auto 56.9 % (50-75); Platelet Count 246 X10^3/uL (150-400); Red Blood Cell Count 4.44 X10^6/uL (4.0-5.2); Red Cell Distribution Width 12.6 % (11.6-14.8); White Blood Cell Count 6.3 X10^3/uL (4.5-11.0)
[2020-01-04 09:11] LABS: Alanine Aminotransferase 12 IU/L (<35); Albumin 4.3 g/dL (3.5-5.0); Albumin Globulin Ratio 1.6 (1.0-2.8); Alkaline Phosphatase 53 U/L (38-126); Aspartate Aminotransferase 20 IU/L (14-36); BUN Creatinine Ratio 18.3 (6-22); Bilirubin Total 0.5 mg/dL (0.2-1.3); Blood Urea Nitrogen 13 mg/dL (7-17); Calcium 9.2 mg/dL (8.4-10.2); Carbon Dioxide 28 mmol/L (22-32); Chloride 103 mmol/L (98-107); Cholesterol 153 mg/dL (140-199); Estimated Glomerular Filt Rate > 60.0 mL/min (>60); Globulin 2.7 g/dL (1.7-4.1); Glucose 84 mg/dL (70-100); HDL Cholesterol 74 mg/dL (40-60); HEMOLYSIS < 15 (0-50); LDL Cholesterol Calculated 64 mg/dL (<100); Potassium 4.9 mmol/L (3.4-5.1); Sodium 137 mmol/L (137-145); Triglycerides 76 mg/dL (35-150)
== END ==
PROVIDERS: PCP Nurse Practitioner Family; Referring Provider Nurse Practitioner Family; Visit Provider Nurse Practitioner Family
DX: Z00.00 Encounter for general adult medical examination without abnormal findings (principal)
CPT/HCPCS: 36415; 80053; 80061; 85025

== ENCOUNTER → 2020-02-13 16:01 | Outpatient (CLI) | payer OTHER, SELFPAY ==
--- NOTE | 2020-02-13 | DI.MRI.S_ITS ---
PROCEDURE: MR KNEE LT WO CON INDICATIONS: Fall, left knee pain. TECHNIQUE: Noncontrast sagittal PD fast spin echo and T2 fast spin echo with fat saturation, sagittal 3-D FLASH with fat saturation; coronal T1 spin echo and PD fast spin echo with fat saturation, and axial PD fast spin echo with fat saturation through the knee. COMPARISON: [facility], CR, XR KNEE LT 3V, 01/03/2020, 14:31. FINDINGS: Image quality: Partially degraded by motion artifact. Menisci: The medial and lateral menisci demonstrate normal morphology and internal signal. The meniscal root ligaments appear intact. Cruciate ligaments: The anterior and posterior cruciate ligaments appear intact. Medial structures: The medial collateral ligament appears intact. Visualized portions of the pes anserinus tendons appear normal. No abnormal bursal fluid. Lateral structures: The lateral collateral ligament, long and short heads of the biceps femoris tendon appear intact. The popliteus tendon appears normal. Iliotibial band appears normal. Anterior structures: The quadriceps and patellar tendons appear intact. Patellar alignment is normal. No femoral trochlear dysplasia or ventral trochlear prominence. No edema in the infrapatellar fat pad. Bones and cartilage: No displaced fracture. There is moderate ill-defined STIR signal elevation within the fibular head. There is mild ill-defined STIR signal elevation within the medial tibial plateau posteriorly. Mild T2 signal elevation within the midportion of the medial femoral condyle. The cartilage of the medial and lateral femorotibial compartments, as well as the patellofemoral compartment, appears normal in thickness. Joint space: There is physiologic knee joint fluid. Trace Esposito's cyst. Normal appearing synovial plicae are incidentally noted. IMPRESSION: 1. Mild contusions within the distal femur and proximal tibia, as well as the proximal fibula. 2. No internal derangement. Dictated by: Brennan Reed M.D. on 02/13/2020 at 16:57 Approved by: Brennan Reed M.D. on 02/13/2020 at 17:00
== END ==
PROVIDERS: PCP Nurse Practitioner Family; Referring Provider Orthopaedic Surgery Adult Reconstructive Orthopaedic Surgery; Visit Provider Orthopaedic Surgery Adult Reconstructive Orthopaedic Surgery
DX: S80.02XA Contusion of left knee, initial encounter (principal); M25.562 Pain in left knee; W19.XXXA Unspecified fall, initial encounter
CPT/HCPCS: 73721

== ENCOUNTER → 2020-05-25 09:05 | Outpatient (CLI) | payer OTHER, SELFPAY ==
[2020-05-25 10:36] LABS: COVID19 -Nasal RAPID Negative (Negative)
== END ==
PROVIDERS: PCP Nurse Practitioner Family; Visit Provider Physician Assistant
DX: Z20.822 Contact with and (suspected) exposure to COVID-19 (principal); J02.9 Acute pharyngitis, unspecified
CPT/HCPCS: 87635

== ENCOUNTER → 2020-05-31 09:09 | Outpatient (CLI) | payer OTHER, SELFPAY ==
[2020-05-31 09:48] LABS: Add Manual Diff / Slide Review NO; Basophils Absolute Auto 100 /uL (0-100); Basophils Percent Auto 0.9 % (0-2); Eosinophils Absolute Auto 100 /uL (0-450); Eosinophils Percent Auto 1.1 % (2-4); Hematocrit 41.2 % (36-46); Hemoglobin 14.1 g/dL (12.0-16.0); Lymphocytes Absolute Auto 2200 /uL (1100-4500); Lymphocytes Percent Auto 36.4 % (25-40); Mean Corpuscular HGB Conc 34.1 % (30-36); Mean Corpuscular Hemoglobin 31.1 PG (26-34); Mean Corpuscular Volume 91.2 fL (80-100); Monocytes Absolute Auto 500 /uL (0-900); Monocytes Percent Auto 7.9 % (3-14); Neutrophils Absolute Auto 3200 /uL (1500-7000); Neutrophils Percent Auto 53.7 % (50-75); Platelet Count 339 X10^3/uL (150-400); Red Blood Cell Count 4.52 X10^6/uL (4.0-5.2); Red Cell Distribution Width 12.4 % (11.6-14.8)
[2020-05-31 09:59] LABS: Alanine Aminotransferase 14 IU/L (<35); Albumin 4.5 g/dL (3.5-5.0); Albumin Globulin Ratio 1.5 (1.0-2.8); Alkaline Phosphatase 55 U/L (38-126); Aspartate Aminotransferase 23 IU/L (14-36); BUN Creatinine Ratio 18.5 (6-22); Bilirubin Total 0.3 mg/dL (0.2-1.3); Blood Urea Nitrogen 12 mg/dL (7-17); Calcium 9.2 mg/dL (8.4-10.2); Carbon Dioxide 32 mmol/L (22-32); Chloride 102 mmol/L (98-107); Estimated Glomerular Filt Rate > 60.0 mL/min (>60); Glucose 91 mg/dL (70-100); HEMOLYSIS < 15 (0-50); Potassium 4.6 mmol/L (3.4-5.1); Sodium 138 mmol/L (137-145); Total Protein 7.5 g/dL (6.3-8.2)
[2020-05-31 10:20] LABS: Free T4, Direct Thyroxine 0.82 ng/dL (0.78-2.19)
[2020-05-31 10:34] LABS: Thyroid Stimulating Hormone 0.878 uIU/mL (0.47-4.68)
[2020-06-01 04:36] LABS: Valproic Acid (Depakene) Total 34 ug/mL (50-100)
== END ==
PROVIDERS: PCP Nurse Practitioner Family; Referring Provider Nurse Practitioner Family; Visit Provider Psychiatry & Neurology Psychiatry
DX: F31.9 Bipolar disorder, unspecified (principal)
CPT/HCPCS: 36415; 80053; 80164; 84439; 84443; 85025

== ENCOUNTER → 2022-07-01 13:42 | Outpatient (CLI) | payer OTHER, SELFPAY ==
[2022-07-01 14:12] LABS: Add Manual Diff / Slide Review NO; Basophils Absolute Auto 0 /uL (0-100); Basophils Percent Auto 0.4 % (0-2); Eosinophils Absolute Auto 100 /uL (0-450); Eosinophils Percent Auto 0.8 % (2-4); Hematocrit 42.2 % (36-46); Hemoglobin 14.3 g/dL (12.0-16.0); Lymphocytes Absolute Auto 2300 /uL (1100-4500); Lymphocytes Percent Auto 20.8 % (25-40); Mean Corpuscular HGB Conc 33.9 % (30-36); Mean Corpuscular Hemoglobin 30.7 PG (26-34); Mean Corpuscular Volume 90.5 fL (80-100); Monocytes Absolute Auto 900 /uL (0-900); Monocytes Percent Auto 7.9 % (3-14); Neutrophils Absolute Auto 7600 /uL (1500-7000); Neutrophils Percent Auto 70.1 % (50-75); Platelet Count 326 X10^3/uL (150-400); Red Blood Cell Count 4.66 X10^6/uL (4.0-5.2); Red Cell Distribution Width 12.9 % (11.6-14.8); White Blood Cell Count 10.8 X10^3/uL (4.5-11.0)
[2022-07-01 14:27] LABS: Alanine Aminotransferase 21 IU/L (<35); Albumin 4.8 g/dL (3.5-5.0); Albumin Globulin Ratio 1.4 (1.0-2.8); Alkaline Phosphatase 58 U/L (38-126); Aspartate Aminotransferase 23 IU/L (14-36); BUN Creatinine Ratio 15.4 (6-22); Bilirubin Total 0.3 mg/dL (0.2-1.3); Blood Urea Nitrogen 10 mg/dL (7-17); Calcium 9.8 mg/dL (8.4-10.2); Carbon Dioxide 28 mmol/L (22-32); Chloride 97 mmol/L (98-107); Estimated Glomerular Filt Rate > 60 mL/min (>60); Globulin 3.4 g/dL (1.7-4.1); Glucose 87 mg/dL (70-100); HEMOLYSIS < 15 (0-50); Potassium 4.2 mmol/L (3.4-5.1); Sodium 135 mmol/L (137-145); Total Protein 8.2 g/dL (6.3-8.2)
[2022-07-01 14:59] LABS: TSH w/ Reflex to FT4 1.14 uIU/mL (0.47-4.68)
== END ==
PROVIDERS: PCP Family Medicine; Referring Provider Family Medicine; Visit Provider Family Medicine
DX: F31.9 Bipolar disorder, unspecified (principal); R63.5 Abnormal weight gain
CPT/HCPCS: 36415; 80053; 83036; 84443; 85025